=== PATIENT | male | born 1950 | race Caucasian/White ===

== ENCOUNTER 2022-07-10 12:04 | Inpatient (IN) | payer OTHER, MEDICARE ==
[~2022-07-10] VITALS: Ht 182.9 cm; Wt 79.8 kg
[2022-07-10] MEDS ORDERED: PRILOSEC OTC20 MG PO (12:17)
--- NOTE | 2022-07-10 20:00 | NUR ---
Patient received from ED nurse, CARRIE Agosto with bedside report at 1910. Initial assessment performed with no critical interventions required. BP elevated and all other vital signs stable with no indications of respiratory distress or fever. Patient does complain of stomach pain for which pain medicatin will be administered. Patient alert and oriented x4 with no neuro deficits noted. Lng sounds are clear and bowel sounds are active. Sullivan in place upon arrive in unit. Will speak with MD concerning BP and blood glucose.
--- NOTE | 2022-07-10 22:00 | NUR ---
PRN blood pressure medication administered for systolic above 190. Dr. Hernandez rounded on patient and discovered that patient has not seen a PCP in 20 years. All vital signs currently stable and pain controlled.
--- NOTE | 2022-07-11 | NUR ---
Repeat assessment performed with no acute changes since previous assessment unless noted. All vital signs stable witn no complaints or indications of respiratory distress, fever or pain. Will continue to monitor.
--- NOTE | 2022-07-11 02:00 | NUR ---
Patient sleeping comfortably with no indications of pain. All vital signs stable. Will continue to monitor.
--- NOTE | 2022-07-11 04:00 | NUR ---
Repeat assessment performed with no acute changes since previous assessment unless noted. All vital signs stable with no indications of respiratory distress, fever or pain. Supplemental oxygen removed. IV fluids via PIV at ordered rate of 125 ml/hr with grullon in place and patent.
--- NOTE | 2022-07-11 06:00 | NUR ---
Patient resting comfortably after PRN meds administered for high bp and stomach pain. Seems that stomach pain resulted from drinking water. All vital signs stable. Will continue to monitor.
--- NOTE | 2022-07-11 07:13 | EKG ---
[facility] [address] [facility] [place] [address] Signed Sinus rhythm with marked sinus arrhythmia Left axis deviation Septal infarct (cited on or before 10-JUL-2022) Prolonged QT Abnormal ECG When compared with ECG of 10-JUL-2022 12:10, (Unconfirmed) Nonspecific T wave abnormality, worse in Inferior leads Confirmed by JEANE FREDERICK MD ([id number]) on 07/11/2022 7:13:30 AM Electronically Signed By: JEANE FREDERICK MD 07/11/22 0713 PATIENT NAME: JULITO JOSEPH Electrocardiogram DATE OF : 46 PHYSICIAN: JEANE FREDERICK MD REPORT #: [id number] REPORT IS CONFIDENTIAL AND NOT TO BE RELEASED WITHOUT AUTHORIZATION
--- NOTE | 2022-07-11 07:13 | EKG ---
[facility] [address] [facility] [place], [place] [address] Signed Normal sinus rhythm Left axis deviation Septal infarct , age undetermined Abnormal ECG No previous ECGs available Confirmed by JEANE FREDERICK MD ([id number]) on 07/11/2022 7:12:51 AM Electronically Signed By: JEANE FREDERICK MD 07/11/22712 PATIENT NAME: JULITO JOSEPH Electrocardiogram DATE OF : 46 PHYSICIAN: JEANE FREDERICK MD REPORT #: [id number] REPORT IS CONFIDENTIAL AND NOT TO BE RELEASED WITHOUT AUTHORIZATION
--- NOTE | 2022-07-11 08:12 | NUR ---
IN PT ROOM WHILE DR FREDERICK EVALUATED PT AND AGREED THAT MINIMAL TO NO ORAL INTAKE FOR THE DAY, TO LET PTS STOMACH REST. PT DID ATTEMPT TO TAKE A SIP OF BROTH AND A SMALL BITE OF JELLO AND INSTANTLY GOT A STOMACH ACHE. PT REPORTS NO PAIN JUST DICOMFORT. PT IS RESTING IN ROOM WITH CALL LIGHT WITHIN REACH, STOMACH EXPOSED, SO THIS IS THE PTS PREFFERED METHOD OF KEEPING HIS STOMACH COMFORTABLE. WILL CONTINUE TO MONITOR.
--- NOTE | 2022-07-11 09:08 | NUR ---
IN PTS ROOM TO GIVE MORNING MEDICATIONS WHEN PT STATED THAT THEY WERE IN PAIN. PT WAS OFFERED DILUADID AND AGREED TO TAKE SOME. PT RECIEVED 0.5MG OF DILUADID TO HELP EASE THE PAIN. PT STATED THEY WERE AT 5/10 OF PAIN. PT HAS CALL LIGHT WITHIN REACH AND WILL CONTINUE TO MONITOR.
--- NOTE | 2022-07-11 09:16 | NUR ---
MORNING ASSESSMENT COMPLETE. PATIENT LAYING IN BED WITH STOMACH EXPOSED, HE STATES THIS HELPS TO KEEP ANY WEIGHT OFF OF HIS ABDOMEN. PT DENIES PAIN, BUT CLEARLY SEEMS UNCOMFORTABLE WITH ANY MOVEMENT. DR. FREDERICK IN ROOM TO SEE PATIENT AND PLAN OF CARE DISCUSSED. DR. FREDERICK DISCUSSING WITH PATIENT THAT HE DOES SEEM TO HAVE DIABETES. THIS IS A NEW FINDING FOR PATIENT. AM MEDS GIVEN. PT UNABLE TO DRINK LIQUIDS THEY HURT HIS STOMACH AT THIS TIME.
--- NOTE | 2022-07-11 09:50 | NUR ---
PT RESTING IN BED AND STATED THAT HIS PAIN IS 0/10. PT STATES THAT HIS BREATHING IS EASIER WELL. WILL CONTINUE TO MONITOR.
--- NOTE | 2022-07-11 11:10 | NUR ---
PT IS RESTING PEACEFULLY IN ROOM. PT HAS CALL LIGHT WITHIN REACH. WILL CONTINUE TO MONITOR.
--- NOTE | 2022-07-11 12:59 | NUR ---
PT IS SITTING IN CHAIR WITH STOMACH EXPOSED, REQUESTED TO USE MOUTH WASH AFTER SIPPING ON BEEF BROTH. PTS IS IN THE ROOM WITH HIM. PT WAS GIVEN EDUCATION ON DMT2. PROVIDED CHANGE OF LINENS. GAVE 3 UNITS OF INSULIN FOR BLOOD GLUCOSE OF 213. GAVE PT LOPRESSOR FOR ELEVATED HIGH BLOOD PRESSURE. CALL LIGHT WITHIN REACH. WILL CONTINUE TO MONITOR.
--- NOTE | 2022-07-11 13:00 | NUR ---
PATIENT HELPED UP TO CHAIR AT LUNCH TIME. PT'S IN ROOM AND ATTENTIVE TO PATIENT. PATIENT IS EMOTIONAL, AND TEARING UP WITH SIMPLE CONVERSATIONS REGARDING HOW HE IS FEELING. PT STARTS TO DISCUSS HIS CHILDHOOD, HIS TRAUMA WITH PHYSICIANS WHEN HE WAS A SMALL CHILD, AND HIS TIME IN THE . PT TRIES TO DRINK BROTH FOR LUNCH BUT STATES IT STILL UPSETS HIS STOMACH. PRN METOPROLOL GIVEN IV. WILL CONTINUE TO MONITOR.
--- NOTE | 2022-07-11 14:46 | NUR ---
ECHO IN THE ROOM WITH THE PT AT 1400. PT RECIEVED A NEW BAG OF LR AND THE NEXT DOSE OF HIS CARBAPENEM. PT RECIEVED 0.5MG OF DILAUDID AT 1400. PT REPORTS NO PAIN OR DIFFICULTY BREATHING AT THIS TIME. PT IS RESTING IN THE BED, WITH THE BLINDS CLOSED AND THE LIGHTS OFF TO MINIMIZE DISCOMFORT WITH HIS CATARACTS. CALL LIGHT IS WITHIN REACH AND WILL CONTINUE TO MONITOR.
--- NOTE | 2022-07-11 17:00 | NUR ---
Spoke with Je and his Siria. Pt is a and is attempting to [facility]. Pt has been healther per , and they have never used the [facility]. She also states pt had an agent orange exposure in [place]. Spoke mostly with as pt is not feeling well and having abd pain. He adds to conversation, gives most of the information. has been in contact the the [facility] and pt has been assigned to [facility] with Dr. Hernandez. thinks he will have an appt in 1 month. She asks if RX's can be faxed to the [facility], she is not sure if they will be filled as pt has not seen Dr. Hernandez. She does not know if pt is service connected. They live in a 1 story house with a ramp. Pt does not use DME. He drives. DC plan is pending at this time as it is unclear what pt will need. I will contact the [facility] tomorrow to clarify pts pcp, if the [facility], will fill rx, if pt is service connected, and when pts appt is.
--- NOTE | 2022-07-11 18:14 | NUR ---
medications reconciled
--- NOTE | 2022-07-11 18:20 | NUR ---
PT REQUESTED PAIN MEDICATION DUE TO PAIN OF ABD. PT RECIEVED 1MG OF DILUATED AT 1745. PTS BLOOD GLUCOSE WAS TAKEN AND WAS AT 141. CLINICAL JUDGEMENT WAS MADE AND INSULIN WAS NOT GIVEN. PT IS NOW RESTING COMFORTABLE IN BED WITH IN THE ROOM. CALL LIGHT WITHIN REACH. WILL CONTINUE TO MONITOR.
--- NOTE | 2022-07-11 19:18 | NUR ---
PATIENT HAS HAD 2 PAUSES TODAY ON HIS TELEMETRY, ONE AT 1146 FOR 2.13 SECONDS, AND ONE AT 1705 FOR 2.57 SECONDS. PT WAS ASYMPTOMATIC DURING THESE TIMES. WILL CONTINUE TO MONITOR.
--- NOTE | 2022-07-11 21:21 | NUR ---
TO PT ROOM FOR MEDICAITON ADMINISTRATION OF PRN METOPROLOL. PT C/O PAIN REPORTS THAT SEEMS TO START UP EVERY 5-6 HOURS WITH NO CHANGE IN QUALITY OR TYPE SINCE ADMISSION. PRN PAIN MEDICATION ADMINSITERED. CALL LIGHT WITHIN REACH.
--- NOTE | 2022-07-11 22:38 | NUR ---
ROUNDED ON PT. PT APPEARS TO BE SLEEPING COMFORTABLY. RESPIRATIONS EVEN AND REGULAR. AROUSES EASILY, NO TEMP ATT. CALL LIGHT WITHIN REACH.
--- NOTE | 2022-07-12 01:51 | NUR ---
ROUNDED ON PT, APPEARS TO BE SLEEPING COMFORTABLY. RESPIRATIONS EVEN AND REGULAR. IV FLUIDS RUNNING.
--- NOTE | 2022-07-12 03:58 | NUR ---
ROUNDED ON PT. PT APPEARS TO BE SLEEPING COMFORTABLY. RESPIRATIONS EVEN AND REGULAR. CALL LIGHT WITHIN REACH.
--- NOTE | 2022-07-12 07:56 | NUR ---
REPORT RECEIVED FROM NIGHT RN - PT RESTING IN BED ON BACK, EYES CLOSED, RR EVEN AND UNLABORED. VS WNL, MINUS MILD HYPERTENSION. CALL LIGHT AT SIDE.
--- NOTE | 2022-07-12 08:00 | NUR ---
Called and spoke with Vinh from the [facility]. He states he spoke with pts yesterday. Pt has been assigned to Dr. Hernandez with [facility], but does not yet have an appt. They do not have any records for this pt as he has not been seen in the past. He requests medical record to be send to Dr. Hernandez fax [phone] and to medical records [phone]. He believes pt will be scheduled to see the in the next 2-3 weeks, but I will need to contact [facility] phone [phone] x [phone]. He states Rx will also need to be faxed to Dr. Hernandez to rewrite and their pharmacy will fill. Note needs to be attached stating date pt will dc. Plan for 7 days for meds to arrive. He requests pt to be sent home with 7 days of meds until he is established with the [place] [facility]. Meds could be picked up the same day and family wants to drive to [place]. Will fax chart and update .
--- NOTE | 2022-07-12 08:30 | NUR ---
ASSESSEMENT COMPLETE - PT UNABLE TO TOLERATE ANY LIQUIDS WITHOUT SEVERE NAUSEA/PAIN. PROVIDED SWABS FOR MOUTH. PRN PAIN MEDICATION ADMINISTERED. UNABLE TO ADMINISTER ZOFRAN AT THIS TIME R/T TIME LAPSED SINCE LAST DOSE. PT STATES PAIN IS LOCALIZED TO UMBILICUS REGION. PT ALSO NOTED TO BE VERY HYPERSENSITIVE TO TACTILE TOUCH. CALL LIGHT IN REACH, DENIES FURTHER NEEDS AT THIS TIME.
--- NOTE | 2022-07-12 10:24 | NUR ---
RN ROUNDING ON PT - PT STATES PAIN HAS RESOLVED. NAUSEA IMPROVED. SITTING IN BED WITH HOB ELEVATED VERY STILL. DENIES NEEDS AT THIS TIME.
--- NOTE | 2022-07-12 11:00 | NUR ---
Faxed medical record to Dr. Hernandez and [facility] medical records.
--- NOTE | 2022-07-12 12:01 | NUR ---
UPDATED ON POC VIA TELEPHONE CALL. ALL QUESTIONS ANSWERED.
--- NOTE | 2022-07-12 12:30 | NUR ---
ASSESSMENT COMPLETE - PT HYPERTENSIVE, IV LOPRESSOR ADMINISTERED PER PRN ORDER. PT CONTINUES TO BE UNABLE TO TOLERATE ANY LIQUIDS BY MOUTH. URINE OUTPUT SUFFICIENT VIA HILL CATH. WILL CONTINUE TO MONITOR. PRN PAIN AND NAUSEA MEDICATION ADMINISTERED PER PT REQUEST. STATES HE IS MOST COMFORTABLE LYING STILL IN BED ON BACK. CALL LIGHT AT SIDE.
--- NOTE | 2022-07-12 13:00 | NUR ---
Attempted to call [facility] x 4 to see if they received my fax. I was never able to reach. Switch board attempted to call other numbers, no answer. Will try again tomorrow.
--- NOTE | 2022-07-12 14:10 | NUR ---
Attempted to see for update. She is not in the room and pt is sleeping. will follow up tomorrow with info from the [facility].
--- NOTE | 2022-07-12 14:10 | NUR ---
PT BROUGHT TO ROOM 109 VIA STRETCHER. BEDSIDE REPORT GIVEN BY CARRIE MICHAUD. AT BEDSIDE. PT ORIENTED ROAD CONTRACTOR LIGHT USE. DENIES FURTHER NEEDS.
--- NOTE | 2022-07-12 15:36 | NUR ---
PLUG ASSEMBLER AND I PUT A TELE ON PATIENT.
--- NOTE | 2022-07-12 16:19 | NUR ---
AFTERNOON ASSESSMENT COMPLETE. DENIES PAIN AND NAUSEA. HEART SOUNDS IRREGULAR, TELE IN PLACE. ABD TONES ACTIVE IN ALL QUADRANTS. ABX RUNNING AT THIS TIME. DENIES FURTHER NEEDS. CALL LIGHT WITHIN REACH.
--- NOTE | 2022-07-13 02:10 | NUR ---
PT LYING IN BED RESTING QUIETLY. RESP EVEN ET UNLABORED. PT HAS FLAT AFFECT DOESN'T TALK MUCH. PT GIVEN PRN METOPROLOL FOR ELEVATED BP WITH 2100 MEDS. PT ON TELE SR. NO EPISODES OF VOMITING OR DIARRHEA AT THIS TIME. PT HILL PATENT AND INTACT. PT 1X ASSIST WHEN AMBULATING. PT HAS NOT COMPLAINED OF PAIN AT THIS TIME.
--- NOTE | 2022-07-13 06:08 | NUR ---
PT RESTING QUIETLY IN BED. RESP EVEN ET UNLABORED. PT HAD QUIET NIGHT NO COMPLAINTS OF PAIN OR NAUSEA. PT DIDN'T EAT DINNER LAST NIGHT AND DIDN'T HAVE ANYTHING TO DRINK. NO ACUTE DISTRESS AT THIS TIME.
--- NOTE | 2022-07-13 07:10 | NUR ---
RECIEVED SHIFT REPORT. PT RESTING IN BED, AWAKE. DENIES FURTHER NEEDS. CALL LIGHT WITHIN REACH.
--- NOTE | 2022-07-13 08:21 | NUR ---
MORNING ROUNDS IN PT ROOM. ASSESSMENT DONE, PT IN BED SITTING UP RESTING. NO SIGN OF DISTRESS. PT IS ALERT AND ORIENTED. PT IS READY FOR BREAKFAST. CALL LIGHT WITHIN REACH. STUDENT RN
--- NOTE | 2022-07-13 09:26 | NUR ---
Medication administration patient in bed sitting up. Done with breakfast. Pain medication given. Discussed goals for the day and call light is within reach. Doctor is in room for rounding. Kika BUTLER.
--- NOTE | 2022-07-13 10:20 | NUR ---
INTO SEE PATIENT, PATIENT AWAKE LAYING IN BED. HE STATES HE IS DOING BETTER TODAY. HE HAS BEEN ABLE TO EAT AND DRINK FOR THE FIRST TIME IN A LONG TIME. ADVISED THAT RECORDS WERE SENT TO DR. FLEMING TEAM AT THE IN YESTERDAY, BUT WE WERE UNABLE TO MAKE CONTACT WITH THEM AFTER MULTIPLE ATTEMPTS. ADVISED CASE MANAGEMENT WILL CONTINUE TO SEND RECORDS TO THE [facility] UNTIL PATIENT DISCHARGE. PATIENT STATES HE HAS NO FURTHER NEEDS AT THIS TIME.
--- NOTE | 2022-07-13 10:30 | NUR ---
MORNING ASSESSMENT COMPLETE. PT AWAKE IN BED, RATED PAIN 6/10, FUNDER AND INSTRUCTOR ADMINISTERED PRN MEDICATION (PER EMAR). PT TOLERATING FLUIDS W/O NAUSEA. BOWEL TONES HYPERACTIVE IN ALL QUADRANTS, NON TENDER. DENIES PAIN AT THIS TIME. CALL LIGHT WITHIN REACH. DENIES FURTHER NEEDS AT THIS TIME. IV IN RAC INFILTRATED, FUNDER DC'D, THIS RN IN ROOM TO ASSIST. IVF ADMINISTERING IN LAC W/O DIFFICULTY. PT EDUCATED ON IV COMPLICATIONS AND TO CALL IF ANY DISCOMFORTS.
--- NOTE | 2022-07-13 11:57 | NUR ---
PT ALERT, ORIENTED AND SPEAKS WITH A SOFT VOICE. PT HAS HAD LOTS OF ACTIVITY, JUST STOPPED TO SAY HELLO AND GAVE G.POST. PT THANKED ME, GAVE BLESSING. WILL FOLLOW NEEDED
--- NOTE | 2022-07-13 13:42 | NUR ---
pt resting in bed, family at bedside. denies further needs. call light in reach
--- NOTE | 2022-07-13 13:57 | NUR ---
PATIENT IN BED AFTER MEAL. VITALS AND I/O'S COMPLETED. HILL DRAINED AND DOCUMENTED. FAMILY IN ROOM CALL LIGHT WITHIN REACH.
--- NOTE | 2022-07-13 14:45 | NUR ---
AFTERNOON ASSESSMENT COMPLETE. NO NEW CHANGES SINCE MORNING ASSESSMENT. PT STATES HE IS COMFORTABLE AT THIS TIME. DENIES FURTHER NEEDS. CALL LIGHT WITHIN REACH
--- NOTE | 2022-07-13 14:55 | NUR ---
PT RESTING IN BED, AWAKE. ABX ADMINISTERING AT THIS TIME. DENIES PAIN. CALL LIGHT WITHIN REACH.
--- NOTE | 2022-07-13 17:20 | NUR ---
PT RESTING IN BED, DENIES PAIN. CALL LIGHT WITHIN REACH.
--- NOTE | 2022-07-13 21:40 | NUR ---
PT SITTING UP IN BED WATCHING TV. RESPEVEN ET UNLABORED. PT MOOD HAS IMPROVED TALKING MORE AND STARTING CONVERSTIONS. PT HILL PATENT AND INTACT DRAINING YELLOW URINE. PT C/O PAIN GIVEN PRN DILAUDID MED WAS EFFECTIVE. PT HAS NO OTHER COMPLAINTS AT THIS TIME. PT TOLERATING SIPS OF WATER WITHOUT N/V OR SOB.
--- NOTE | 2022-07-14 00:33 | NUR ---
PT NOT ON TELE WAS DISCONTINUED.
--- NOTE | 2022-07-14 03:23 | NUR ---
PT LYING IN BED RESTING QUIETLY. RESP EVEN ET UNLABORED NO ACUTE DISTRESS NOTED AT THIS TIME.
--- NOTE | 2022-07-14 06:29 | NUR ---
PT LYING IN BED RESTING QUIETLY RESP EVEN ET UNLABORED. PT BP ELEVATED 188/90 GIVEN PRN METOPROLOL. PT STATES NO PAIN AT THIS TIME. WILL REPORT TO ONCOMING NURSE TO ASK MD IF LIZ NEEDS TO BE D/C.
--- NOTE | 2022-07-14 07:35 | NUR ---
RECIEVED BEDSIDE REPORT FROM CARRIE GUDINO. PT IS RESTING IN BED WITH EYES OPEN. DENIES NEEDS AT THIS TIME. TOLERATING CLEAR LIQUIDS WELL. DENIES NEEDS AT THIS TIME, ALL PERSONAL BELONGINGS IN REACH.
--- NOTE | 2022-07-14 08:40 | NUR ---
PT AWAKE AND ALERT IN BED, EATING BREAKFAST. TOLERATING CLEARS WITH SOME NAUSEA BUT "NOT MUCH". DENIES NEED FOR MEDICATION. PAIN IS TOLEARBLE, DECLINED PAIN MEDICATIONS. ENCOURAGED TO SIT UP IN CHAIR AND AMBULATE IN HALLS. IV CHARTED, THIS RN DID NOT PLACE, [employer] WOULD NOT ALLOW CHARTING ON CURRENT IV. IV IS WNL. ONE EPISODE OF EMESIS AFTER EATING HIS BROTH. REMINDED TO GO SLOW. WILL ASK MD ABOUT STOOL SOFTNERS, NO BM IN 4 DAYS.
--- NOTE | 2022-07-14 08:42 | NUR ---
DID PATIENT'S BLOOD SUGAR CHECK. ALSO PATIENT SAID HE WAS COLD SO I ASKED HIM IF HE WOULD LIKE A WARM BLANKET AND HE SAID YES.
--- NOTE | 2022-07-14 09:24 | NUR ---
ADMINISTERED MIRALAX WITH APPLE JUICE. NO OTHER NEEDS AT THIS TIME. CALL LIGHT WITHIN REACH.
--- NOTE | 2022-07-14 09:37 | NUR ---
JANESSA BUTLER GAVE MIRALAX. PT DECLINED SUPPOSITORY AND SENNA.
--- NOTE | 2022-07-14 09:50 | NUR ---
SPOKE WITH PATIENT'S , SHE IS NOT GETTING INFORMATION FROM THE PATIENT AND WANTED TO KNOW ABOUT DISCHARGE AND WHAT CRITERIA MUST BE MET PRIOR TO DISCHARGE. EXPLAINED PROCESS FOR DISCHARGE AND ADVISED I WOULD CALL HER BACK LATER ONCE MD ROUNDED ON PATIENT.
--- NOTE | 2022-07-14 10:06 | NUR ---
PER SPOUSE, DOCTOR AT THE [facility] IS DR. PARRA [facility]. APPOINTMENTS ARE 30 DAYS OUT. GAVE UPDATE TO PT'S SPOUSE.
--- NOTE | 2022-07-14 12:41 | NUR ---
PT REPORTED HE WAS UNABLE TO EAT THE MASHED POTATOES, WAS GAGGING. HE REQUESTED A WARM BLANKET, PROVIDED. HE IS GOING TO TRY TO SLEEP. HE WALKED ANOTHER 3 LAPS.
--- NOTE | 2022-07-14 14:06 | CONS ---
[facility] [address] [place], [place] [address] Signed DATE OF CONSULTATION: 07/10/2022 TIME: 8:20 p.m. REQUESTING PHYSICIAN: Jeane Blount MD. PROBLEM: Recent episode of elevated lactate, severe abdominal pain out of proportion to exam, and transient atrial fibrillation. HISTORY OF PRESENT ILLNESS: This 71-year-old white man presented to the emergency room at approximately 12:47 p.m. and was evaluated thoroughly by Dr. Randall. He was noted to have some chest pain and shortness of breath, vomiting, diarrhea, chills and extreme sensitivity to the abdomen with unusual pattern of pain including exquisite sensitivity to even light touch to the skin itself. He underwent a CT scan which showed left ureterovesical junction calculi without associated hydronephrosis and multiple indeterminate bilateral renal lesions measuring up to 2.3 cm on the left side. There is a 2.4 cm indeterminate hypoattenuating liver lesion. There was no evidence of aortic aneurysm or clinical evidence of free air. There was no evidence of small bowel obstruction. Lab studies were notable for a white count of 13.9, subsequently elevated to 16.7 with a normal hematocrit of 48.4 and normal platelets of 294,000. His creatinine improved from 1.25 to 1.19 with IV fluid administration. His urinalysis showed moderate blood. I was called in regard to this and with concerns on the part of Dr. Randall of possible mesenteric ischemia. I had advised immediate institution of heparin 800 units/hour as well as CT angiogram. CT angiogram was performed showing no evidence of mesenteric embolism or thrombosis in anyway. He was admitted by Dr. Blount for further management. Notable was the finding of elevated lactic acid at 4.5 at 2:30, decreased slightly to 3.9 at 4:30 and a sensitive troponin at 12.7, which is considered normal. His 12-lead EKG shows normal sinus rhythm and no ST-T wave changes. Additionally, it is noted that CT angiogram did not show aortic dissection or other similar problem. He has been admitted to the hospital under the service of Dr. Blount with maintenance of his meropenem. Currently, the patient feels much better. He is not having abdominal pain and the sensitivity of his abdomen is essentially resolved. He maintains a normal sinus rhythm at this time currently with a temperature of 98.2, a pulse of 99, blood pressure Electronically Signed By: DICKSON MOHAN MD 07/14/22 1406 PATIENT NAME: JULITO JOSEPH CONSULTATION DATE OF : 46 REPORT #: [id number] PHYSICIAN: DICKSON MOHAN MD PCP: RAUL PARRA MD REPORT IS CONFIDENTIAL AND NOT TO BE RELEASED WITHOUT AUTHORIZATION [facility] [address] [place], [place] [address] Signed 178/110. He has been hypertensive during the course of the day. MEDICATIONS: At admission include enoxaparin subcutaneously, meropenem, pantoprazole, insulin, metoprolol, magnesium sulfate, and Dilaudid. REVIEW OF SYSTEMS: He denies any chest pain. His only pain, any durability is in the epigastric area and not particularly excessive. He does take Prilosec on a daily basis. He tells me that his most recent physician was Dr. Forte, who has been now for probably [address] Forte well. He is . He lives in [place]. He quit smoking over 20 years ago. He denies any alcohol use and only occasional use of marijuana. He uses no illicit drugs, in particularly not methamphetamine. PHYSICAL EXAMINATION: GENERAL: The thin white man who is mildly anxious, but alert and oriented. VITAL SIGNS: Temperature is 98.2, pulse 99, blood pressure 178/110. NECK: Trachea is midline. CHEST: Shows normal respiratory excursion. He has no tachypnea. ABDOMEN: Scaphoid and sunken. Gentle palpation throughout shows no focal mass and certainly no tenderness. There is no ascites. SKIN: He does not have exquisite sensitivity to skin at this time. LOWER EXTREMITIES: Show no clubbing, cyanosis, or edema. He has no petechiae. LABORATORY STUDIES: Most recently, white count 16.7, hematocrit 48.4, platelets 294,000. Electrolytes abnormal for potassium 3.2, CO2 was 20, creatinine is 1.19. Lactic acid at 14:00 and at 16:33 was 3.9. Serology shows negative coronavirus. Urinalysis as previously noted showed urine rbc's 4-6 per high-power field. ASSESSMENT: I reviewed the CT scan in particular the angiogram which clearly shows no evidence of embolism or thrombosis nor sign of aortic dissection. The source of his abdominal pain is rather enigmatic. He does have mild hematuria and has been demonstrated with kidney stones (nephrolithiasis with ureteral stone) without hydroureter. Of any particular finding that may account for his abdominal pain, this would have to be considered. I agree that he should remain under close observation. I agree that antibiotic administration be undertaken as it is. Blood pressure control would be important and that is being addressed by Dr. Blount. I will continue to follow the patient and assist as necessary at the discretion of Dr. Blount. Electronically Signed By: DICKSON MOHAN MD 07/14/22 1406 PATIENT NAME: JULITO JOSEPH CONSULTATION DATE OF : 46 REPORT #: [id number] PHYSICIAN: DICKSON MOHAN MD PCP: RAUL PARRA MD REPORT IS CONFIDENTIAL AND NOT TO BE RELEASED WITHOUT AUTHORIZATION [address] [place], [place] [address] Signed MD DAREK Doe/PERNELLL /[id number] cc: MD Torito El MD Copies: JEANE BLOUNT MD, WILLIAM S MD ~ Electronically Signed By: DICKSON MOHAN MD 07/14/22 1406 PATIENT NAME: JULITO JOSEPH CONSULTATION DATE OF : 46 REPORT #: [id number] PHYSICIAN: DICKSON MOHAN MD PCP: RAUL PARRA MD REPORT IS CONFIDENTIAL AND NOT TO BE RELEASED WITHOUT AUTHORIZATION
--- NOTE | 2022-07-14 15:20 | NUR ---
PT AND CATEGORY DEVELOPMENT MANAGER REPORT PT HAD A VERY LARGE BM. PT STATED HE FEELS BETTER.
--- NOTE | 2022-07-14 17:33 | NUR ---
PT IS TOLERATING CLEARS WELL. ENCOURAGE FLUIDS/EATING. VOIDING WELL, HAD VERY LARGE BM THIS SHIFT. HILL D/C. UP TO CHAIR FOR MOST OF DAY. DECLINED PAIN MEDS THIS SHIFT. IVF AT 100ML. STARTED PO LISENPRIL, TOLERATED WELL, NO ASE NOTED OR REPORTED. BP IN GOOD CONTROL. PT DECLINED SHOWER AND BED BATH WITH MULTIPLE ATTEMPTS.
--- NOTE | 2022-07-14 19:17 | NUR ---
ASKED PATIENT IF HE WOULD LIKE TO TAKE A SHOWER TODAY AND HE SAID NO I ALSO ASKED HIM HOW ABOUT A BED BATH AND HE SAID NO.
--- NOTE | 2022-07-14 22:40 | NUR ---
PT LYING IN BED WATCHING TV. RESP EVEN ET UNLABORED ABLE TO MAKE NEEDS KNOWN. PT HILL D/C'D VOIDING APPROPRIATELY. PT GIVEN LAXATIVE ON PREVIOUS SHIFT HAD AN ACCIDENT ON FLOOR IN ROOM STOOL WAS DARK AND LIQUID AWARE OF BLACK STOOLS. PT REFUSED 2100 LAXATIVE. PT GIVEN PRN DILAUDID FOR PAIN. PT HAD NOT OTHER COMPLAINTS OR ISSUES AT THIS TIME.
--- NOTE | 2022-07-15 00:01 | NUR ---
RECHECKED PT BP AFTER RECEIVING PRN METOPROLOL WITH 2100 MEDS FOR A BP 153/113 BP CURRENTLY 154/71 AFTER MEDICATION.
--- NOTE | 2022-07-15 06:12 | NUR ---
PT HAD UNEVENTFUL NIGHT. HELD SENOKOT AND MIRALAX PM DOSE DUE TO PT HAVING SEVERAL BLACK LIQUID STOOLS. WILL REPORT TO ONCOMING NURSE TO INFORM MD TO D/C OR MAKE PRN. PT BP ELEVATED 178/81 GAVE PRN LOPRESSOR AT 0552. PT STATES HE IS TIRED OF RECEIVING THE SAME MEAL EVERYDAY INFORMED UNTIL ABLE TO TOLERATE FULL LIQUIDS DIET CANNOT BE ADVANCED. PT ALSO REQUESTED TO HOLD ALL LAXATIVES THIS MORNING. PT CURRENTLY LYING IN BED RESTING QUIETLY.
--- NOTE | 2022-07-15 07:41 | NUR ---
RECIEVED REPORT FROM PODIATRIC PHYSICIAN RN. PT HAD MULTIPLE LOOSE, LIQUID BMS. REQUESTED ES TO ASSIST WITH THE ROOM. PT IS UP TO CHAIR, NO NEEDS AT THIS TIME.
--- NOTE | 2022-07-15 07:54 | NUR ---
PT RESTING IN BED. WARM BLANKET GIVEN, WHITE BOARD UPDATED. CALL LIGHT IN REACH. NO FURTHER NEEDS AT THIS TIME.
--- NOTE | 2022-07-15 09:39 | NUR ---
PT IS AWAKE AND ALERT. DIET ADVANCED TO FULL LIQUIDS, NEW TRAY ORDERED. PT IS HAVING MULTIPLE LIQUID BMS, BOWEL TONES ACTIVE, HELD BOWEL MEDS PER CLINICAL JUDGEMENT AND PATIENT REQUEST. BEDSIDE COMMODE IN PLACE. FLUIDS DC. IV SALINE LOCKED.
--- NOTE | 2022-07-15 13:29 | NUR ---
DR LEE CALLED. PT TOLERATED MEAL WELL. HE CAN DISCHARGE.
--- NOTE | 2022-07-15 13:45 | NUR ---
PT WALKED THREE LONG LAPS AROUND NURSES STATION WHILE CHATTING. PT NOW BACK IN ROOM UP IN CHAIR. CALL LIGHT IN REACH. NO FURTHER NEEDS AT THIS TIME.
[2022-07-15] MEDS ORDERED: CIPROFLOXACIN500 MG PO (13:49)
--- NOTE | 2022-07-15 13:49 | NUR ---
PT UP WALKING WITH FIRE LOSS PREVENTION ENGINEER. THREE LAPS COMPLETED.
[2022-07-15] MEDS ORDERED: METRONIDAZOLE500 MG PO (13:50)
[2022-07-15] MEDS ORDERED: METFORMIN HCL500 MG PO (13:51)
[2022-07-15] MEDS ORDERED: LISINOPRIL10 MG PO (13:51)
== END 2022-07-15 15:45 | disposition home or self-care (01) | DRG 872 ==
LOC: ED 12:04 → CCU 18:26 → MS 18:26 → CCU 18:32 → MS 07-12 14:00
PROVIDERS: ADMIT Internal Medicine; ATTEND Family Medicine
DX: A41.9 Sepsis, unspecified organism (principal); K21.9 Gastro-esophageal reflux disease without esophagitis; I10 Essential (primary) hypertension; E83.42 Hypomagnesemia; R07.89 Other chest pain; R10.9 Unspecified abdominal pain; Z20.822 Contact with and (suspected) exposure to COVID-19; E87.6 Hypokalemia; E11.9 Type 2 diabetes mellitus without complications; Z98.49 Cataract extraction status, unspecified eye; Z79.899 Other long term (current) drug therapy
CPT/HCPCS: 36415; 71045; 74175; 74177; 80048; 80053; 81001; 83036; 83605; 83690; 83735; 84484; 85025; 85060; 85379; 85610; 85730; 86140; 86141; 93005; 93010; 93306; A9270; C9113; C9803; J1170; J1644; J1650; J1815; J1885; J2185; J2405; J3475; J3480; J7030; J7040; J7060; J7121; Q9967; U0003

== ENCOUNTER 2022-12-14 07:17 | Day surgery (SDC) | payer OTHER ==
[2022-12-11 11:31] VITALS: BP 151/82
[~2022-12-14] VITALS: Ht 182.9 cm; Wt 75.5 kg
[~2022-12-14 07:17] MED LIST: CIPROFLOXACIN500 MG PO; LISINOPRIL10 MG PO; METFORMIN HCL500 MG PO; METRONIDAZOLE500 MG PO; MULTI-VITAMIN1 EAC1 PO; PRILOSEC OTC20 MG PO; TRAZODONE HCL50 MG PO
[2022-12-14 07:37] VITALS: BP 152/90
[2022-12-14] MEDS ORDERED: FLOMAX0.4 MG PO (07:40)
--- NOTE | 2022-12-14 08:07 | NUR ---
PT APPEARS ANXIOUS. PT TAKING SLOW DEEP BREATHS AND OCCASSIONALLY WILL HAVE A TEAR COME DOWN. PT REPORTS HE HAD A BAD EXPERIENCE WITH SURGERY IN THE AND HASN'T BEEN BACK SINCE. PT STATES HE DOES NOT THINK HE IS ANXIOUS. PT'S STATES HE APPEARS ANXIOUS TO HER. PT PROVIDED A WARM BLANKET AND REASSURED. PT STATES HE FEELS OKAY AT THIS MOMENT. CONTINUES TO TAKE SLOW DEEP BREATHS.
--- NOTE | 2022-12-14 08:26 | NUR ---
PT'S ASKED FOR THE HEAD OF THE BED TO BE LOWERED. HEAD OF BED DECREASED AND FOOT BOARD REMOVED PER PT REQUEST AND COMFORT. PT ALSO PROVIDED A WARM BLANKET. PT STATES HE IS CURRENTLY NOT HAVING ANY PAIN. PT REMAINS TAKING SLOW DEEP BREATHS PERIODICALLY. FOOD SERVICE ATTENDANT UPDATED ON PT. PT'S PROVIDED COFFEE PER HER REQUEST.
--- NOTE | 2022-12-14 08:43 | NUR ---
PRODUCTION SKI REPAIRER AT THE BEDSIDE TO TALK WITH THE PT.
--- NOTE | 2022-12-14 09:05 | NUR ---
PT RESTING IN BED WITH HIS EYES CLOSED. OPENS EYES WITH VERBAL STIMULATION. PT APPEARS MORE CALM. PT IS BREATHING CALMLY AND NO TEARS NOTED. CONTINUOUS PULSE OX IN PLACE. OXYGEN SAT HIGH 90'S ON RA.
--- NOTE | 2022-12-14 11:32 | NUR ---
12/14/22 1132 Lyly Khan 1118- PT ARRIVED TO PACU, LEFT LATERAL POSITION, ABD SOFT. LR INFUSING TO LEFT FOREARM. PT REACTIVE TO STIMULI, WOKE AND WAS REORIENTED TO PLACE AND PT BACK TO SLEEP AT THIS TIME. ALL MONITORS IN PLACE, CONTINUE TO MONITOR.
[2022-12-14 12:31] VITALS: BP 146/62
--- NOTE | 2022-12-14 12:40 | NUR ---
PT BROUGHT BACK TO DAY SURGERY ROOM #6 THE PT IS DROWSY AND NOT WANTING TO EAT, DRINK, OR OPEN HIS EYES. PT WILL RESPOND TO VERBAL COMMANDS. PT REPORTS NO PAIN OR NAUSEA. PT ENCOURAGED TO PASS FLATUS. PT ABLE TO PASS LARGE AMOUNTS OF FLATUS. PT'S BROUGHT BACK TO THE BEDSIDE. PT'S HAD QUESTIONS REGARDING THE INFORMATION DR. JOHNSON GAVE HER. ANSWERS PROVIDED. PT EDUCATED HE CAN REST AT THIS TIME AND TO NOTIFY STAFF IF HE WANTS ANYTHING TO EAT OR DRINK OR HAS ANY OTHER NEEDS. PT AGREEABLE TO THIS. CALL LIGHT WITH PT. PT'S AT THE BEDSIDE. BED IN THE LOWEST POSITION.
[2022-12-14 13:09] VITALS: BP 135/74
--- NOTE | 2022-12-14 13:10 | NUR ---
PT ASKING TO GO HOME. PT HAS BEEN ABLE TO DRINK SOME WATER. TOLERATED WELL.DC INSTRUCTIONS PROVIDED TO PT AND PT'S . ALL QUESTIONS ANSWERED. 1315- PT SITTING UP ON THE EDGE OF THE BED. PT REPORTS NO DIZZINESS, NAUSEA, OR PAIN. PT DRESSING HIMSELF WITH HIS AT THE BEDSIDE.
--- NOTE | 2022-12-15 07:27 | OR ---
[facility] [place] [facility] [address], [place] [address] Signed DATE OF OPERATION: 12/14/2022 SURGEON: Cara Johnson MD PREOPERATIVE DIAGNOSES: 1. Guaiac-positive stool. 2. Resolved hiccups. 3. Resolved vomiting. 4. Gastroesophageal reflux disease. 5. Questionable esophageal dysphagia. 6. Weight loss of 25 pounds over six months. POSTOPERATIVE DIAGNOSES: 1. Zhwd-kb-inxdkjus diffuse gastroduodenitis. 2. Moderate sized hiatal hernia (44-39 cm). 3. GE junction at (39 cm). 4. 4 mm polyp at 10 cm in the rectum. 5. 10 mm pedunculated polyp at 15 cm at the rectosigmoid junction (tattoo, snare). 6. 4 mm polyp at the cecum/periappendiceal orifice (clip). 7. 10 mm pedunculated polyp proximal right colon (#1, snare) - lost to retrieval. 8. 4 mm polyp at proximal right colon (#2). 9. Base of polyp at proximal right colon (#1). 10. 4 mm polyp mid right colon. 11. 4 mm polyp at hepatic flexure. 12. 12 mm pedunculated polyp at proximal transverse colon (clip, snare). 13. 12 mm pedunculated polyp x1 and 4 mm polyps x3 at mid transverse colon (snare). 14. 7 mm polyp at distal transverse colon (snare). PROCEDURES: 1. Esophagogastroduodenoscopy with CLOtest, biopsies of the duodenum, pyloric bulb, antrum, body, GE junction and midesophagus. 2. Colonoscopy with hot biopsy snare polypectomy, clipping and tattoo x1. INDICATIONS: Je is a 72-year-old gentleman, asked to see me for both upper and lower endoscopy. He said he had an anesthesia many years ago at our old hospital. He said when he woke up, he was very combative. He said it was so bad the hospital kicked him out the front door. After his primary care provider, Dr. Bobby Forte, had a number years ago he said he never went to another doctor. More recently, he was scheduled to have his cataracts removed. His blood pressure was high, so the procedure had to be Electronically Signed By: CARA JOHNSON MD 12/15/22 0727 PATIENT NAME: JE JOSEPH OPERATIVE REPORT DATE OF : 46 REPORT #: [id number] PHYSICIAN: CARA JOHNSON MD PCP: RAUL HERNANDEZ MD REPORT IS CONFIDENTIAL AND NOT TO BE RELEASED WITHOUT AUTHORIZATION [facility] [place] [facility] [address], [place] [address] Signed canceled. He actually called an ambulance and had him taken to the emergency room where he had to be admitted to the hospitalist service. Apparently, he had some type of sepsis of unknown etiology at that time. Dr. Hernandez, a general surgeon, had actually seen while in the hospital. No procedures were needed. He is connected to the [facility] in [place], [place]. He went up to see Dr. Raul Hernandez just one office visit. Locally, he has established with Dr. Howard here in [place], [place]. Apparently, he has various lesions on the kidney and his liver. He is scheduled to have a followup CT scan later in the week after I saw him at the office. He said his sedimentation rate and his PSA were both elevated. He gave a stool sample and came back guaiac positive. He was found to be diabetic in addition he had hypertension. He has now been placed on appropriate medications. He said he had some hiccups and vomiting, but that is resolved. He also mentioned acid reflux. There was talked about esophageal dysphagia mainly to solids. He said if he eats food he does not like he simply just chews, chews and chews and never swallows it. Nevertheless, he has lost 25 pounds in six months. He said he has right food, he eats just fine. In our conversation in the office, he is very slow in talking and his memory seems to be moderate. His actually had to ask permission to intercede and talk, but it was very minimal. I gave him a brochure on both upper and lower endoscopy. He said he has never been to either one. He understands there is risk including, but not limited to gas bloating, crampy abdominal pain, bleeding, perforation requiring surgery, and missed diagnosis. Also because of his advanced age, frail nature and medical issues, we asked for an anesthesia provider to help us with increased monitoring sedation with propofol. That proved to be a muhammad decision. PROCEDURE IN DETAIL: Je was taken into our endoscopy suite and placed in the supine semi-recumbent position. He was given monitored anesthesia care, propofol infusion per our nurse otm consultant. A bite block was utilized for the case. The adult gastroscope was introduced and advanced out in the third portion of the duodenum without difficulty. The duodenum was unremarkable. We took a biopsy from the duodenum for pathologic review. He did have inflammatory changes in the pyloric bulb and throughout the stomach, mild to moderate in nature. There were no ulcerations. We took biopsies of the pyloric bulb as well as the antrum. An addition, biopsy came out of the antrum for CLOtest. We took an additional biopsy from the body of the stomach. Upon retroflexion of scope, we can see the moderate sized hiatal hernia which measured from 44 cm back to 39 cm. Of course, the GE junction is at 39 cm. There is mild disruption. We had withdrawn the scope up through the area of the GE junction, which was compliant without stricture. There were no esophageal gastric varices. There was no Montgomery's mucosa. Really no distal middle or upper esophagitis. We took a biopsy at the GE junction as well as the mid esophagus. After this, the gas was suctioned out, the gastroscope removed. He tolerated the procedure quite well. Electronically Signed By: CARA JOHNSON MD 12/15/22 0727 PATIENT NAME: JE JOSEPH OPERATIVE REPORT DATE OF : 46 REPORT #: [id number] PHYSICIAN: CARA JOHNSON MD PCP: RAUL HERNANDEZ MD REPORT IS CONFIDENTIAL AND NOT TO BE RELEASED WITHOUT AUTHORIZATION [facility] [place] [facility] [address], [place] [address] Signed Anton was rotated into the left lateral decubitus position. He was maintained on IV sedation with the propofol infusion. A digital rectal exam was performed and he had good sphincter tone. There were really no external hemorrhoids. No masses. His prostate was a bit indurated. The adult colonoscope was introduced, advanced all the way around into the cecum under direct visualization of camera. It took a little while to get through an angulated tortuous sigmoid colon. Fortunately, his prep was fairly good. I think next time he could use a little more prep. He said he could not quite get through the 64 ounces of the Gatorade on this occasion. We could easily see the appendiceal orifice and ileocecal valve. We had taken pictures throughout for photodocumentation. Most of the polyps listed above were removed with a hot biopsy forceps. We also used the snare to remove four separate polyps. We did place a clip on at least a couple of the polyps. We initially placed a tattoo at the rectosigmoid junction as well. We did see some small diverticula in the proximal right colon and some in the sigmoid colon as well. Relatively small, few in number, and scattered about. Once in the rectum, the scope was then retroflexed and there was really no additional pathology noted above the anal canal and a very small standard internal hemorrhoid columns. After this, the gas was suctioned out, colonoscope removed. Anton tolerated the procedure quite well and all 13 polyps were removed. RECOMMENDATIONS: I will see Anton back in my office in 7 to 14 days to review his results. He will need to take a full bowel prep on the next occasion. Because of the number of polyps he has had removed, he needs to consider a short interval followup colonoscopy. Cara Johnson MD ALB/MODL /[id number] cc: MD Raul Rodriguez MD Russel J Nichols, MD Electronically Signed By: CARA JOHNSON MD 12/15/22 0727 PATIENT NAME: JE JOSEPH OPERATIVE REPORT DATE OF : 46 REPORT #: [id number] PHYSICIAN: CARA JOHNSON MD PCP: RAUL HERNANDEZ MD REPORT IS CONFIDENTIAL AND NOT TO BE RELEASED WITHOUT AUTHORIZATION [facility] [place] [facility] [address] [place] [place], [place] [address] Signed Copies: CARA JOHNSON MD, DELWYN MD NICHOLS, RUSSEL J MD ~ Electronically Signed By: CARA JOHNSON MD 12/15/22 0727 PATIENT NAME: JE JOSEPH OPERATIVE REPORT DATE OF : 46 REPORT #: [id number] PHYSICIAN: CARA JOHNSON MD PCP: RAUL HERNANDEZ MD REPORT IS CONFIDENTIAL AND NOT TO BE RELEASED WITHOUT AUTHORIZATION
--- NOTE | 2022-12-19 11:19 | PATH ---
[facility] [address] [place], [place] [address] Signed SPECIMEN(S): A DUODENAL BIOPSY SPECIMEN(S): B ANTRUM/PYLORUS BIOPSY SPECIMEN(S): C ANTRUM/PYLORUS BIOPSY SPECIMEN(S): D BODY BIOPSY SPECIMEN(S): E GE JUNCTION BIOPSY SPECIMEN(S): F MIDDLE ESOPHAGEAL BIOPSY SPECIMEN(S): G RECTAL POLYP AT 10 CM SPECIMEN(S): H RECTAL POLYP AT 15 CM SPECIMEN(S): I CECUM POLYP SPECIMEN(S): J PROXIMAL ASCENDING/RIGHT COLON POLYP SPECIMEN(S): K PROXIMAL ASCENDING/RIGHT POLYP BASE SPECIMEN(S): L MID ASCENDING/RIGHT COLON POLYP SPECIMEN(S): M HEPATIC FLEXURE COLON POLYP SPECIMEN(S): N PROXIMAL TRANSVERSE COLON POLYPS SPECIMEN(S): O MID TRANSVERSE COLON POLYPS SPECIMEN(S): P DISTAL TRANSVERSE COLON POLYP SPECIMEN SOURCE: A. DUODENAL BIOPSY B. ANTRUM/PYLORUS BIOPSY C. ANTRUM/PYLORUS BIOPSY D. BODY BIOPSY E. GE JUNCTION BIOPSY F. MIDDLE ESOPHAGEAL BIOPSY G. RECTAL POLYP AT 10 CM H. RECTAL POLYP AT 15 CM I. CECUM POLYP J. PROXIMAL ASCENDING/RIGHT COLON POLYP K. PROXIMAL ASCENDING/RIGHT POLYP BASE L. MID ASCENDING/RIGHT COLON POLYP M. HEPATIC FLEXURE COLON POLYP N. PROXIMAL TRANSVERSE COLON POLYPS O. MID TRANSVERSE COLON POLYPS P. DISTAL TRANSVERSE COLON POLYP CLINICAL HISTORY: Weight loss, esophageal dysphagia, vomiting, GERD, guaiac positive stools, hiatal hernia FINAL PATHOLOGIC DIAGNOSIS: A. Duodenal biopsy: PATIENT NAME: JULITO FOY PATHOLOGY DATE OF : 46 REPORT #: [id number] PHYSICIAN: JOYCE OWENS PCP: RAUL PARRA MD REPORT IS CONFIDENTIAL AND NOT TO BE RELEASED WITHOUT AUTHORIZATION [facility] [address] [place], [place] [address] Signed - Benign duodenal mucosa, negative for specific diagnostic abnormality. B. Antrum / pylorus biopsy: - Benign duodenal mucosa, negative for specific diagnostic abnormality. C. Antrum / pylorus biopsy: - Benign gastric antral-type mucosa with diffuse mild chronic inflammation. - Helicobacter pylori immunostain is negative for organisms. D. Body biopsy: - Benign gastric fundic-type mucosa with focal slight chronic inflammation. - A Helicobacter pylori immunostain is negative for organisms. E. GE junction biopsy: - Benign esophageal and gastric-type mucosa with slight chronic inflammation. - Negative for specialized intestinal metaplasia or dysplasia. F. Middle esophageal biopsy: - Benign esophageal epithelium, negative for increased epithelial eosinophils. G. Rectal polyp at 10 cm: - Benign colonic mucosa with slight hyperplastic features (three fragments). H. Rectal polyp at 15 cm: - Tubular adenoma (multiple fragments). I. Cecum polyp: - Tubular adenoma (one fragment). J. Proximal ascending / right colon polyp: - Tubular adenoma (one fragment). K. Proximal ascending / right colon polyp base: - Tubular adenoma (multiple fragments). L. Mid ascending / right colon polyp: - Tubular adenoma (two fragments). M. Hepatic flexure: - Tubular adenoma (one fragment). N. Proximal transverse colon polyps: - Tubular adenoma with focal hyperplastic features (serrated polyp/adenoma) (multiple fragments). O. Mid transverse colon polyps: - Tubular adenoma with focal hyperplastic features (serrated polyp/adenoma) (multiple fragments). P. Distal transverse colon polyp: - Polypoid colonic mucosa with slight hyperplastic features (one fragment). JVR:[facility]:C2NR MICROSCOPIC EXAMINATION: Histologic sections of all submitted blocks are examined by light microscopy. These findings, together with the gross examination, support the pathologic PATIENT NAME: JULITO FOY PATHOLOGY DATE OF : 46 REPORT #: [id number] PHYSICIAN: JOYCE OWENS PCP: RAUL PARRA MD REPORT IS CONFIDENTIAL AND NOT TO BE RELEASED WITHOUT AUTHORIZATION [facility] [address] [place], [place] [address] Signed diagnosis. A Helicobacter pylori immunostain is performed with appropriate positive and negative controls on block (C1) and is negative for organisms. A Helicobacter pylori immunostain is performed with appropriate positive and negative controls on block (D1) and is negative for organisms. JVR:[facility] GROSS DESCRIPTION: A. The specimen, labeled and designated "Law, S, 1." and designated on the requisition "duodenum biopsy," is received in formalin and consists of one vergara soft tissue fragment that is 0.3 cm in greatest dimension. The specimen is entirely submitted in (A1). B. The specimen, labeled and designated "Law, S, 2." and designated on the requisition "antrum/pylorus biopsy," is received in formalin and consists of one vergara soft tissue fragment that is 0.4 cm in greatest dimension. Also present within the container is a 0.2 cm white plastic synthetic material. The soft tissue is entirely submitted in cassette (B1). Synthetic material remains within the container. C. The specimen, labeled and designated "Foy, S, 3." and designated on the requisition "antrum/pylorus biopsy," is received in formalin and consists of two vergara soft tissue fragments that each measure 0.6 cm in greatest dimension. The specimen is entirely submitted in (C1). D. The specimen, labeled and designated "Foy, Rebekah, 4." and designated on the requisition "stomach body biopsy," is received in formalin and consists of one vergara soft tissue fragment that is 0.4 cm in greatest dimension. The specimen is entirely submitted in (D1). E. The specimen, labeled and designated "Law, Rebekah, 5." and designated on the requisition "GE junction biopsy," is received in formalin and consists of one vergara soft tissue fragment that is 0.4 cm in greatest dimension. The specimen is entirely submitted in (E1). F. The specimen, labeled and designated "Law, Rebekah, 6." and designated on the requisition "middle esophagus biopsy," is received in formalin and consists of one white-vergara soft tissue fragment that measures 0.6 cm in greatest dimension. The specimen is entirely submitted in (F1). G. The specimen, labeled and designated "Foy, Rebekah, 7." and designated on the requisition "rectal polyp at 10 cm," is received in formalin and consists of three vergara soft tissue fragments that measure 0.3 to 0.4 cm in greatest dimension. The specimen is entirely submitted in PATIENT NAME: JULITO FOY PATHOLOGY DATE OF : 46 REPORT #: [id number] PHYSICIAN: JOYCE PATHOLOGY PCP: RAUL PARRA MD REPORT IS CONFIDENTIAL AND NOT TO BE RELEASED WITHOUT AUTHORIZATION [facility] [address] [place], [place] [address] Signed (G1). H. The specimen, labeled and designated "Foy, S, 8." and designated on the requisition "rectal polyp at 15 cm," is received in formalin and consists of one vergara-red polypoid soft tissue fragment that is 1.7 x 1.1 x 1.0 cm. The specimen is inked, sectioned, and entirely submitted in (H1). I. The specimen, labeled and designated "Foy, S, 9." and designated on the requisition "cecum polyp," is received in formalin and consists of three vergara soft tissue fragments that measure 0.3 to 0.4 cm in greatest dimension. The specimen is entirely submitted in (I1). J. The specimen, labeled and designated "Foy, S, 1." and designated on the requisition "proximal ascending/right polyp," is received in formalin and consists of one vergara soft tissue fragment that is 0.3 cm in greatest dimension. The specimen is entirely submitted in (J1). K. The specimen, labeled and designated "Foy, S, 3." and designated on the requisition "proximal ascending/right polyp base," is received in formalin and consists of two vergara soft tissue fragments that measure 0.1 to 0.3 cm in greatest dimension. The specimen is entirely submitted in (K1). L. The specimen, labeled and designated "Foy, S, 4." and designated on the requisition "mid ascending/right polyp," is received in formalin and consists of two vergara soft tissue fragments that each measure 0.4 cm in greatest dimension. The specimen is entirely submitted in (L1). M. The specimen, labeled and designated "Foy, S, 5." and designated on the requisition "hepatic flexure polyp," is received in formalin and consists of two vergara soft tissue fragments that each measure 0.3 cm in greatest dimension. The specimen is entirely submitted in (M1). N. The specimen, labeled and designated "Law, Rebekah, 6." and designated on the requisition "proximal transverse polyp x 2," is received in formalin and consists of four vergara soft tissue fragments that measure 0.2 to 0.7 cm in greatest dimension. The largest tissue fragment is inked and trisected. The specimen is entirely submitted in (N1). O. The specimen, labeled and designated "Law, S, 7." and designated on the requisition "mid transverse polyp x 3," is received in formalin and consists of three vergara soft tissue fragments that measure 0.4 to 0.8 cm in greatest dimension. The largest tissue fragment is inked and trisected. The specimen is entirely submitted in (O1). P. The specimen, labeled and designated "Law, Rebekah, 8." and designated on the PATIENT NAME: JULITO FOY PATHOLOGY DATE OF : 46 REPORT #: [id number] PHYSICIAN: JOYCE PATHOLOGY PCP: RAUL PARRA MD REPORT IS CONFIDENTIAL AND NOT TO BE RELEASED WITHOUT AUTHORIZATION [address] [address] Signed requisition "distal transverse polyp," is received in formalin and consists of one vergara soft tissue fragment that is 0.3 cm in greatest dimension. The specimen is entirely submitted in (P1). FB (under the direct supervision of a pathologist) The Gross Description was prepared using a voice recognition system. The report was reviewed for accuracy; however, sound-alike word errors, addition and/or deletions may occur. If there is any question about this report, please contact Client Services. ADDITIONAL NOTES: Immunohistochemical and/or in situ hybridization studies were performed on this case with the appropriate positive controls that react as expected. This test was developed and its performance characteristics determined by [facility]. It has not been cleared or approved by the U.S. Food and Drug Administration. The FDA has determined that such clearance or approval is not necessary. This test is used for clinical purposes. It should not be regarded as investigational or for research. [facility] is certified under the Clinical Laboratory Improvement Amendments of 1988 (CLIA) as qualified to perform high complexity clinical laboratory testing. This assay has not been validated for specimens that have been decalcified. PERFORMING LABORATORY: Technical component was performed by [facility], [address] [place] [id number] (CLIA# [id number]). Professional interpretation was performed by [facility], [address] [place] [id number] (CLIA#: [id number]). Diagnostician: Alfredo Weeks MD Pathologist Diagnostician: Mike Moreno MD Pathologist Electronically Signed 12/19/2022 Copies: ~ PATIENT NAME: JULITO FOY PATHOLOGY DATE OF : 46 REPORT #: [id number] PHYSICIAN: [facility] PCP: RAUL PARRA MD REPORT IS CONFIDENTIAL AND NOT TO BE RELEASED WITHOUT AUTHORIZATION
== END 2022-12-14 13:22 | disposition home or self-care (01) ==
LOC: OPS 07:17 → DS 07:17 → OPS 08:50 → DS 10:30 → OPS 13:22
PROVIDERS: ATTEND Colon & Rectal Surgery
PROC: 0DB28ZX Excision of Middle Esophagus, Via Natural or Artificial Opening Endoscopic, Diagnostic (ICD-10-PCS; 2022-12-14)
PROC: 0DB48ZX Excision of Esophagogastric Junction, Via Natural or Artificial Opening Endoscopic, Diagnostic (ICD-10-PCS; 2022-12-14)
PROC: 0DBK8ZZ Excision of Ascending Colon, Via Natural or Artificial Opening Endoscopic (ICD-10-PCS; 2022-12-14)
PROC: 0DBL8ZZ Excision of Transverse Colon, Via Natural or Artificial Opening Endoscopic (ICD-10-PCS; 2022-12-14)
PROC: 0DBP8ZZ Excision of Rectum, Via Natural or Artificial Opening Endoscopic (ICD-10-PCS; 2022-12-14)
PROC: 0DBH8ZZ Excision of Cecum, Via Natural or Artificial Opening Endoscopic (ICD-10-PCS; 2022-12-14)
PROC: 3E0H8GC Introduction of Other Therapeutic Substance into Lower GI, Via Natural or Artificial Opening Endoscopic (ICD-10-PCS; 2022-12-14)
PROC: 0DB98ZX Excision of Duodenum, Via Natural or Artificial Opening Endoscopic, Diagnostic (ICD-10-PCS; principal; 2022-12-14 08:50)
PROC: 0DB68ZX Excision of Stomach, Via Natural or Artificial Opening Endoscopic, Diagnostic (ICD-10-PCS; 2022-12-14 08:50)
DX: K29.90 Gastroduodenitis, unspecified, without bleeding (principal); K21.9 Gastro-esophageal reflux disease without esophagitis; I10 Essential (primary) hypertension; R06.6 Hiccough; R63.4 Abnormal weight loss; Z68.21 Body mass index [BMI] 21.0-21.9, adult; K44.9 Diaphragmatic hernia without obstruction or gangrene; K57.30 Diverticulosis of large intestine without perforation or abscess without bleeding; D12.2 Benign neoplasm of ascending colon; D12.0 Benign neoplasm of cecum; D12.3 Benign neoplasm of transverse colon; D12.8 Benign neoplasm of rectum
CPT/HCPCS: 00731; 36415; 87077; 88305; 88341; 88342; J2250; J2371; J2704; J7121